=== PATIENT | male | born 1940 | race Caucasian/White ===

== ENCOUNTER 2016-09-15 08:15 | Emergency (ER) | payer MEDICARE, OTHER ==
[~2016-09-15] VITALS: Ht 162.6 cm; Wt 83.9 kg
[~2016-09-15 08:15] MED LIST: ALBU8.5H6 IH; ALPR0.5T PO; AMLO2.5T PO; AMOX1TAB11 PO; ASCO500C PO; ASPI-482 PO; ASPI325T4 PO; BRIN10DR EACHEYE; CALC1CAP9 PO; DULO30CA43 PO; FISH1CAP PO; GLIM1TAB2 PO; Hydrocodone/Acetaminophen PO; LATA2.5D3 OP; LEVO15TA4 PO; LIDO700A4 TD; LOSA100T6 PO; LUBI8CAP3 PO; LYSI100013 PO; LYSI500T11 PO; METF850T2 PO; MULT-18 PO; OMEP40CA5 PO; PRAS25CA PO; PREG50CA PO; PREG75CA PO; PROAIR HFA8.5 GM IH; TAMS0.4C97 PO; UBID50TA PO; VITA1TAB19 PO; VITA2500 PO; VITA400C11 PO; Vitamin D 3; [UNRECOGNIZED DRUG - CODE] IJ; [UNRECOGNIZED DRUG - OTHER]; [UNRECOGNIZED DRUG - OTHER]; [UNRECOGNIZED DRUG - OTHER]
[2016-09-15 09:34] LABS: OBC FLU VALID
[2016-09-15 09:34] LABS: BASO % 1 % (0-3); EOS % 2 % (0-3); HEMATOCRIT 37.5 % (39.0-53.0); HEMOGLOBIN 12.8 g/dL (13.0-17.5); LYMPH % 28 % (24-48); MEAN CORPUSCULAR HEMOGLOBIN 33 pg (25-35); MEAN CORPUSCULAR HGB CONC 34 g/dL (31-37); MEAN CORPUSCULAR VOLUME 95 fL (79-100); MONO % 10 % (0-9); NEUT % 59 % (31-73); PLATELET COUNT 300 x10^3/uL (140-400); RED BLOOD COUNT 3.94 x10^6/uL (4.30-5.70); RED CELL DISTRIBUTION WIDTH 12.5 % (11.5-14.5); WHITE BLOOD COUNT 10.7 x10^3/uL (4.0-11.0)
[2016-09-15 09:35] LABS: CALCIUM 9.2 mg/dL (8.5-10.1); GFR 72.8; POTASSIUM 4.2 mmol/L (3.5-5.1)
--- NOTE | 2016-09-15 09:36 | RAD ---
Indication cough and chest pain. History of diabetes hypertension and COPD. A single view of the chest was obtained and is compared to an examination 10/12/2013. Heart size is slightly enlarged. There is no congestive heart failure focal infiltrate significant pleural fluid collection or pneumothorax. Visualized bony structures appear grossly intact. IMPRESSION: Mild cardiomegaly. No acute finding is apparent in the chest
[2016-09-15 09:40] LABS: ALBUMIN 3.7 g/dL (3.4-5.0); DIRECT BILIRUBIN 0.2 mg/dL (0.0-0.2); TOTAL BILIRUBIN 1.3 mg/dL (0.2-1.0); TOTAL PROTEIN 6.6 g/dL (6.4-8.2)
[2016-09-15 09:47] LABS: CKMB MASS 1.2 ng/mL (0.0-3.6); CREATINE KINASE 19 U/L (39-308)
[2016-09-15 10:41] LABS: BILIRUBIN,URINE NEGATIVE (NEG); GLUCOSE,URINE NEGATIVE (NEG); NITRITE,URINE NEGATIVE (NEG); PH,URINE 6.5; PROTEIN,URINE NEGATIVE (NEG-TRACE); UROBILINOGEN,URINE 0.2 mg/dL (0.2 mg/dL)
[2016-09-15 11:03] LABS: BACTERIA,URINE 0 /HPF (0-FEW); RBC,URINE 0 /HPF (0-2); WBC,URINE 0 /HPF (0-4)
[2016-09-15 11:04] LABS: SQUAMOUS EPITHELIAL CELL,UR OCC /LPF
--- NOTE | 2016-09-15 11:31 | EKG ---
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
--- NOTE | 2016-09-15 11:59 | PHYS DOC ---
Past Medical History Past Medical History: COPD, Diabetes-Type II, GERD, Glaucoma, Hypertension, Other Additional Past Medical Histor: Albinism, Shingles, enlarged prostate Past Surgical History: Appendectomy, Knee Replacement, Tonsillectomy Additional Past Surgical Histo: Right wrist, Eye, vasectomy Alcohol Use: Occasionally Drug Use: None Adult General Chief Complaint Chief Complaint: CHEST PAIN HPI HPI Patient is a 76 year old male brought to the ED by his daughter who works here at [employer]. The patient has had some sinus congestion for about a week and had some chest congestion over that time, becoming increasingly bothersome. He' s had some congested feeling across his anterior chest bilaterally, across his upper back. He's had a cough and felt a little shortness of breath with exertion. His symptoms are not intermittent but have been consistent for several days. In fact right now his most prominent symptom is a sore throat. It kept him up last night despite using throat numbing spray. He also took ibuprofen which helped a little bit. He felt feverish and had a chill. He did not have a flu shot last fall, he doesn't believe in them. He is in good general health with no cardiac history. He does not smoke. No GI symptoms. PCP Dr. Archibald Review of Systems Review of Systems Constitutional: As in history of present illness Eyes: Denies change in visual acuity, redness, or eye pain [] HENT: As in history of present illness Respiratory: As in history of present illness Cardiovascular: Chest discomfort described as in history of present illness does not sound cardiac to me GI: Denies abdominal pain, nausea, vomiting, bloody stools or diarrhea [] : Denies dysuria or hematuria [] Musculoskeletal: Denies back pain or joint pain [] Integument: Denies rash or skin lesions [] Neurologic: Denies headache, focal weakness or sensory changes [] Allergies Allergies Allergies Coded Allergies Type Severity Reaction Last Updated Verified Sulfa (Sulfonamide Antibiotics) Allergy Intermediate 10/21/14 Yes morphine Allergy Intermediate Hallucinations 10/21/14 Yes Physical Exam Physical Exam Constitutional: Well developed, well nourished, no acute distress, non-toxic appearance. Alert, talkative, mentating normally, no dyspnea HENT: Normocephalic, atraumatic, bilateral external ears normal, oropharynx moist, no oral exudates, throat and oropharynx entirely clear without redness or abnormality, nose normal. [] Eyes: conjunctiva normal, no discharge. [] Neck: Normal range of motion, no stridor. [] Cardiovascular:Heart rate regular rhythm, no murmur [] Lungs & Thorax: Bilateral breath sounds clear to auscultation , lungs entirely clear bilaterally Abdomen: Bowel sounds normal, soft, no tenderness, no masses, no pulsatile masses. [] Skin: Warm, dry, no erythema, no rash. [] Extremities: No tenderness, no cyanosis, no clubbing, ROM intact, no edema. [] Neurologic: Alert and oriented X 3, normal motor function, normal sensory function, no focal deficits noted. [] Current Patient Data Vital Signs Vital Signs Date Time Temp Pulse Resp B/P Pulse Ox O2 Delivery O2 Flow Rate FiO2 09/15/16 12:13 61 20 178/85 98 Room Air 09/15/16 08:30 98.6 98.6 Lab Values Laboratory Tests Test 09/15/16 08:59 09/15/16 09:06 09/15/16 10:30 Influenza Type A Antigen Negative (NEGATIVE) Influenza Type B Antigen Negative (NEGATIVE) White Blood Count 10.7x10^3/uL (4.0-11.0) Red Blood Count 3.94x10^6/uL (4.30-5.70) L Hemoglobin 12.8g/dL (13.0-17.5) L Hematocrit 37.5% (39.0-53.0) L Mean Corpuscular Volume 95fL (79-100) Mean Corpuscular Hemoglobin 33pg (25-35) Mean Corpuscular Hemoglobin Concent 34g/dL (31-37) Red Cell Distribution Width 12.5% (11.5-14.5) Platelet Count 300x10^3/uL (140-400) Neutrophils (%) (Auto) 59% (31-73) Lymphocytes (%) (Auto) 28% (24-48) Monocytes (%) (Auto) 10% (0-9) H Eosinophils (%) (Auto) 2% (0-3) Basophils (%) (Auto) 1% (0-3) Neutrophils # (Auto) 6.3x10^3uL (1.8-7.7) Lymphocytes # (Auto) 3.0x10^3/uL (1.0-4.8) Monocytes # (Auto) 1.1x10^3/uL (0.0-1.1) Eosinophils # (Auto) 0.3x10^3/uL (0.0-0.7) Basophils # (Auto) 0.0x10^3/uL (0.0-0.2) Sodium Level 141mmol/L (136-145) Potassium Level 4.2mmol/L (3.5-5.1) Chloride Level 104mmol/L (98-107) Carbon Dioxide Level 28mmol/L (21-32) Anion Gap 9 (6-14) Blood Urea Nitrogen 11mg/dL (8-26) Creatinine 1.0mg/dL (0.7-1.3) Estimated GFR (Cockcroft-Gault) 72.8 Glucose Level 200mg/dL (70-99) H Calcium Level 9.2mg/dL (8.5-10.1) Total Bilirubin 1.3mg/dL (0.2-1.0) H Direct Bilirubin 0.2mg/dL (0.0-0.2) Aspartate Amino Transferase (AST) 13U/L (15-37) L Alanine Aminotransferase (ALT) 22U/L (16-63) Alkaline Phosphatase 55U/L (46-116) Creatine Kinase 19U/L (39-308) L Creatine Kinase MB (Mass) 1.2ng/mL (0.0-3.6) Creatine Kinase MB Relative Index % (0-4) Troponin I Quantitative < 0.017ng/mL (0.000-0.055) IC-Ihc-J-Type Natriuretic Peptide 147pg/mL (0-449) Total Protein 6.6g/dL (6.4-8.2) Albumin 3.7g/dL (3.4-5.0) Urine Collection Type Unknown Urine Color Yellow Urine Clarity Clear Urine pH 6.5 Urine Specific [place] 1.010 Urine Protein Negativemg/dL (NEG-TRACE) Urine Glucose (UA) Negativemg/dL (NEG) Urine Ketones (Stick) Negativemg/dL (NEG) Urine Blood Negative (NEG) Urine Nitrite Negative (NEG) Urine Bilirubin Negative (NEG) Urine Urobilinogen Dipstick 0.2mg/dL (0.2 mg/dL) Urine Leukocyte Esterase Negative (NEG) Urine RBC 0/HPF (0-2) Urine WBC 0/HPF (0-4) Urine Squamous Epithelial Cells Occ/LPF Urine Bacteria 0/HPF (0-FEW) Urine Mucus Slight/LPF Laboratory Tests 09/15/16 09:06 Laboratory Tests 09/15/16 09:06 EKG EKG 12-lead EKG read by me. Sinus rhythm. Heart rate 77. There are no acute ST or T wave changes indicative of ischemia or infarction. No STEMI. 0830[] Radiology/Procedures Radiology/Procedures One view portable chest x-ray read by the radiologist. No acute cardiopulmonary abnormality. [] Course & Med Decision Making Course & Med Decision Making Pertinent Labs and Imaging studies reviewed. (See chart for details) 76-year-old male without cardiac history presents with a week of head and chest congestion and sore throat. Influenza is negative. I believe his symptoms are viral. I discussed symptom relief with him. His symptoms do not sound cardiac, EKG and cardiac enzymes are normal. [] Dragon Disclaimer Dragon Disclaimer This electronic medical record was generated, in whole or in part, using a voice recognition dictation system. Departure Departure Impression: Primary Impression: Pharyngitis Disposition: HOME, SELF-CARE Condition: STABLE Referrals: Guillermina ARCHIBALD MD (PCP) Patient Instructions: Viral Syndrome BOBBY BOYER MD Sep 15, 2016 11:59
[2016-09-15 12:13] VITALS: BP 178/85
== END 2016-09-15 12:15 | disposition home or self-care (01) ==
LOC: ER 08:15
DX: J02.9 Acute pharyngitis, unspecified (principal); J44.9 Chronic obstructive pulmonary disease, unspecified; K21.9 Gastro-esophageal reflux disease without esophagitis; E11.39 Type 2 diabetes mellitus with other diabetic ophthalmic complication; H40.9 Unspecified glaucoma; I10 Essential (primary) hypertension; Z96.659 Presence of unspecified artificial knee joint; Z98.52 Vasectomy status; Z90.49 Acquired absence of other specified parts of digestive tract; Z88.2 Allergy status to sulfonamides; Z88.5 Allergy status to narcotic agent
CPT/HCPCS: 36415; 71010; 80048; 80076; 81001; 82553; 83880; 84484; 85027; 87804; 93005; 99285-25

== ENCOUNTER 2018-11-08 00:44 | Emergency (ER) | payer OTHER ==
[~2018-11-08] VITALS: Ht 165.1 cm; Wt 81.6 kg
[~2018-11-08 00:44] MED LIST changes: +ALBU2.5V8 IH; -AMLO2.5T PO; +AMLO2.5T5 PO; -ASPI325T4 PO; +ASPI325T8 PO; +LOSA100T14 PO; -LOSA100T6 PO; -LUBI8CAP3 PO; +LUBI8CAP4 PO; -LYSI500T11 PO; +LYSI500T24 PO; -METF850T2 PO; +METF850T8 PO; -PROAIR HFA8.5 GM IH
[2018-11-08 00:45] VITALS: BP 162/85
[2018-11-08] MEDS ORDERED: ALBUTEROL SULFATE 2.5 MG/3 ML NEBU. NEB ONE (01:15)
--- NOTE | 2018-11-08 02:00 | PHYS DOC ---
Past Medical History Past Medical History: COPD, Diabetes-Type II, GERD, Glaucoma, Hypertension, Other Additional Past Medical Histor: Albinism, Shingles, enlarged prostate Past Surgical History: Appendectomy, Knee Replacement, Tonsillectomy Additional Past Surgical Histo: Right wrist, Eye, vasectomy Alcohol Use: Occasionally Drug Use: None Adult General Chief Complaint Chief Complaint: Congestion HPI HPI 78-year-old male presents with a chief complaint of sinus pressure congestion cough with sputum production and wheezing. Patient states symptoms have been ongoing for the last several days progressively becoming worse. He is been febrile. He denies any sick contacts. Exam patient has frontal and maxillary sinus tenderness he is wheezy on exam. Patient denies any chest pain Review of Systems Review of Systems Constitutional: Denies fever or chills [] Eyes: Denies change in visual acuity, redness, or eye pain [] HENT: Positive nasal congestion no sore throat [] Respiratory: positive cough or shortness of breath [] Cardiovascular: No additional information not addressed in HPI [] GI: Denies abdominal pain, nausea, vomiting, bloody stools or diarrhea [] : Denies dysuria or hematuria [] Musculoskeletal: Denies back pain or joint pain [] Integument: Denies rash or skin lesions [] Neurologic: Denies headache, focal weakness or sensory changes [] Endocrine: Denies polyuria or polydipsia [] All other systems were reviewed and found to be within normal limits, except as documented in this note. Current Medications Current Medications Current Medications Medications (Trade) Dose Ordered Sig/Obed Start Time Stop Time Status Last Admin Dose Admin Albuterol Sulfate (Ventolin Neb Soln) 2.5 mg 1X ONCE 11/08/18 01:15 11/08/18 01:16 DC 11/08/18 01:23 2.5 MG Allergies Allergies Allergies Coded Allergies Type Severity Reaction Last Updated Verified Sulfa (Sulfonamide Antibiotics) Allergy Intermediate 10/21/14 Yes morphine Allergy Intermediate Hallucinations 10/21/14 Yes Physical Exam Physical Exam Constitutional: Well developed, well nourished, no acute distress, non-toxic appearance. [] HENT: Normocephalic, atraumatic, bilateral external ears normal, oropharynx moist, no oral exudates, nose normal. [Bilateral frontal and maxillary sinus tenderness] Eyes: PERRLA, EOMI, conjunctiva normal, no discharge. [] Neck: Normal range of motion, no tenderness, supple, no stridor. [] Cardiovascular:Heart rate regular rhythm, no murmur [] Lungs & Thorax: Bilateral breath sounds wheezing Abdomen: Bowel sounds normal, soft, no tenderness, no masses, no pulsatile masses. [] Skin: Warm, dry, no erythema, no rash. [] Back: No tenderness, no CVA tenderness. [] Extremities: No tenderness, no cyanosis, no clubbing, ROM intact, no edema. [] Neurologic: Alert and oriented X 3, normal motor function, normal sensory function, no focal deficits noted. [] Psychologic: Affect normal, judgement normal, mood normal. [] Current Patient Data Vital Signs Vital Signs Date Time Temp Pulse Resp B/P (MAP) Pulse Ox O2 Delivery O2 Flow Rate FiO2 11/08/18 01:26 96 Room Air 11/08/18 00:45 99.4 89 20 162/85 (110) 99.4 EKG EKG [] Radiology/Procedures Radiology/Procedures Chest x-ray wet read no focal infiltrates no bony abnormalities heart mediastinum within normal limits[] Course & Med Decision Making Course & Med Decision Making Pertinent Labs and Imaging studies reviewed. (See chart for details) []Agent was evaluated for chief complaint. Workup consisted of radiologic imaging. Treatment included albuterol neb. Patient will be discharged home with Robitussin with codeine and amoxicillin Dragon Disclaimer Dragon Disclaimer This electronic medical record was generated, in whole or in part, using a voice recognition dictation system. Departure Departure Referrals: Guillermina ARCHIBALD MD (PCP) CHETAN SCHMIDT DO Nov 08, 2018 01:59
[2018-11-08] MEDS ORDERED: AMOX875T PO (02:03)
[2018-11-08] MEDS ORDERED: GUAI120L35 PO (02:03)
[2018-11-08] MEDS ORDERED: ACETAMINOPHEN 325 MG TABLET. PO ONE (02:30)
[2018-11-08] MEDS ORDERED: AMOXICILLIN 250 MG CAPSULE. PO ONE (03:00)
--- NOTE | 2018-11-08 03:18 | RAD ---
PROCEDURE: CHEST AP ONLY CLINICAL INDICATION: shortness of breath, cough COMPARISON: None FINDINGS: No pneumothorax identified. Cardiac and mediastinal contours unremarkable. No pulmonary consolidation or acute airspace disease. No acute osseous abnormalities identified. IMPRESSION: No pulmonary consolidation or acute airspace disease. Electronically signed by: Patric Brandt DO (11/08/2018 3:15 AM) [facility]
== END 2018-11-08 03:03 | disposition home or self-care (01) ==
LOC: ER 00:44
DX: R05 Cough (principal); R09.81 Nasal congestion; R06.2 Wheezing; J44.9 Chronic obstructive pulmonary disease, unspecified; K21.9 Gastro-esophageal reflux disease without esophagitis; I10 Essential (primary) hypertension; E11.39 Type 2 diabetes mellitus with other diabetic ophthalmic complication; Z88.2 Allergy status to sulfonamides; Z88.5 Allergy status to narcotic agent
CPT/HCPCS: 71045; 94640; 99283; J7613

== ENCOUNTER → 2019-03-20 | Outpatient (CLI) | payer OTHER ==
[~2019-03-20] MED LIST changes: +AMOX875T PO; +GUAI120L35 PO
--- NOTE | 2019-03-20 14:08 | KCIC ---
BRAIN W/O CONTRAST Date: 03/20/2019 12:30 PM Indication: Dizziness, falls Comparison: MRI 04/29/2015. Technique: Multiplanar multisequence MRI of the brain was performed without intravenous contrast using the standard protocol. Findings: No acute infarct. No acute hemorrhage. The ventricles are normal in size and configuration without hydrocephalus. Unchanged anterior middle cranial fossa extra-axial CSF spaces, possibly arachnoid cysts. Extensive confluent FLAIR hyperintense signal in the subcortical and periventricular deep white matter as well as the enriqueta, a nonspecific finding, most commonly seen with chronic small vessel ischemic disease. Moderate generalized cerebral and cerebellar volume loss. The scalp and calvarium are normal. The pituitary and sella are normal. No Chiari malformation. Mild incompletely characterized degenerative spondylosis of the visualized upper cervical spine. The visualized orbits and globes are normal. The visualized paranasal sinuses are clear. The mastoid air cells are clear. Normal flow voids within the vertebral, basilar, and internal carotid arteries indicating patency. IMPRESSION: 1. No acute infarct, hemorrhage, mass, or hydrocephalus. 2. Extensive chronic small vessel ischemic disease and moderate generalized cerebral volume loss. Electronically signed by: Ben Bennett MD (03/20/2019 2:06 PM) [id number]
--- NOTE | 2019-03-20 15:11 | KCIC ---
Carotid artery Doppler History: , , , Technique: Realtime grayscale B-mode 2D sonographic images of the subclavian, vertebral and carotid arteries were performed with color flow, and spectral waveform analysis Doppler imaging. Comparison: April 29, 2015 Stenosis calculations are derived from the elevated velocity criteria which are known to correlate with NASCET methodology. Findings: Mild Scattered focal soft and calcific plaque is seen in the carotid arteries. Right vertebral: antegrade Left vertebral: antegrade Right subclavian: Not evaluated Left subclavian: None evaluated Right Left Common Carotid Artery PSV 120 cm/second 96 cm/second Internal Carotid Artery PSV 66 cm/second 54 cm/second Internal Carotid Artery EDV 17 cm/second 15 cm/second External Carotid Artery PSV 101 cm/second 78 cm/second ICA/CCA ratio 0.6 0.6 Impression: bilateral carotid artery plaque formation with no evidence of hemodynamically significant stenosis Electronically signed by: Paco Goodrich MD (03/20/2019 3:07 PM) [facility] [place]
== END | disposition home or self-care (01) ==
LOC: KCIC US 10:24
PROVIDERS: ATTEND Family Medicine
DX: I65.23 Occlusion and stenosis of bilateral carotid arteries (principal); G93.89 Other specified disorders of brain; M47.812 Spondylosis without myelopathy or radiculopathy, cervical region; G44.89 Other headache syndrome; Z68.28 Body mass index [BMI] 28.0-28.9, adult
CPT/HCPCS: 70551; 93880

== ENCOUNTER 2019-04-15 20:37 | Emergency (ER) | payer OTHER ==
[~2019-04-15] VITALS: Ht 165.1 cm; Wt 81.6 kg
[~2019-04-15 20:37] MED LIST changes: -DULO30CA43 PO; +DULO30CA44 PO
[2019-04-15 21:00] VITALS: BP 199/93
[2019-04-15] MEDS ORDERED: FLUORESCEIN OPHTH TEST STRIP. OS ONE (21:30)
[2019-04-15] MEDS ORDERED: TETRACAINE 0.5% OPHTH SOLUTION 4ML BOTTLE. OS ONE (21:30)
[2019-04-15] MEDS ORDERED: ERYT1OIN6 LEFTEYE (21:43)
[2019-04-15] MEDS ORDERED: HYDR-2761 PO (21:43)
--- NOTE | 2019-04-15 21:44 | PHYS DOC ---
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 Pt states he flushed his eye out with water and noticed that his eye began to hurt. 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 Pt currently rates his pain an 8/10 on the pain scale he denies any alleviating factors. Review of Systems Review of Systems Constitutional: Denies fever or chills [] Eyes: Denies change in visual acuity; see HPI HENT: Denies nasal congestion or sore throat [] Respiratory: Denies cough or shortness of breath [] Integument: Denies rash or skin lesions [] Neurologic: Denies headache Complete systems were reviewed and found to be within normal limits, except as documented in this note. Current Medications Current Medications Current Medications Medications (Trade) Dose Ordered Sig/Obed Start Time Stop Time Status Last Admin Dose Admin Fluorescein Sodium (Ful-Justine) 1 strip 1X ONCE 04/15/19 21:30 04/15/19 21:31 DC 04/15/19 21:26 1 STRIP Tetracaine HCl (Tetracaine) 1 drop 1X ONCE 04/15/19 21:30 04/15/19 21:31 DC 04/15/19 21:26 1 DROP Allergies Allergies Allergies Coded Allergies Type Severity Reaction Last Updated Verified Sulfa (Sulfonamide Antibiotics) Allergy Intermediate 10/21/14 Yes morphine Allergy Intermediate Hallucinations 10/21/14 Yes Physical Exam Physical Exam Constitutional: Well developed, well nourished, no acute distress, non-toxic appearance. [] HENT: Normocephalic, atraumatic, bilateral external ears normal, oropharynx moist, no oral exudates, nose normal. [] Eyes: PERRLA, EOMI, conjunctiva normal, no discharge; see fluorescein eye exam under procedures . [] Neck: Normal range of motion, no stridor. [] Lungs & Thorax: Respirations even and unlabored, no retractions, no respiratory distress Skin: Warm, dry, no erythema, no rash. [] [] Extremities: No cyanosis, ROM intact Neurologic: Alert and oriented X 3, normal motor function, normal sensory function, no focal deficits noted. [] Psychologic: Affect normal, judgement normal, mood normal. [] Current Patient Data Vital Signs Vital Signs Date Time Temp Pulse Resp B/P (MAP) Pulse Ox O2 Delivery O2 Flow Rate FiO2 04/15/19 21:00 98.8 81 14 199/93 (128) 98 Room Air 98.8 EKG EKG [] Radiology/Procedures Radiology/Procedures Using tetracaine and fluroscein the patient's eye was examined under Wood's lamp and an area of uptake between 11 o'clock and 1 o'clock was noted. Patient's ocular symptoms have stabilized while they have been evaluated in the department and are appropriate for outpatient work up. No evidence of ruptured globe, retinal detachment, acute angle closure glaucoma, or deep space infection. Plan for 24 hour ophthalmologic follow up. Course & Med Decision Making Course & Med Decision Making Pertinent Labs and Imaging studies reviewed. (See chart for details) [] Dragon Disclaimer Dragon Disclaimer This electronic medical record was generated, in whole or in part, using a voice recognition dictation system. Departure Departure Impression: Primary Impression: Corneal abscess of left eye Disposition: 01 HOME, SELF-CARE Condition: STABLE Referrals: Guillermina ARCHIBALD MD (PCP) Patient Instructions: Eye - Corneal Abrasion, [id number] Additional Instructions: Fill the prescriptions and use as directed. Call your eye doctor tomorrow morning for re-evaluation. Return to the ER if your symptoms worsen. Scripts Hydrocodone Bit/Acetaminophen (HYDROCODONE-APAP 5-325 ) 1 Tab Tablet 1 TAB PO PRN Q6HRS PRN for PAIN for 3 Days, #12 TAB 0 Refills Prov: MAGI REYNOLDS V BELT COVERER 04/15/19 Erythromycin Base (Erythromycin) 1 Gm Oint...g. 0.5 INCH LEFTEYE QID for 5 Days, #1 TUBE 0 Refills Prov: MAGI REYNOLDS V BELT COVERER 04/15/19 MAGI REYNOLDS V BELT COVERER Apr 15, 2019 21:44
[2019-04-15] MEDS ORDERED: ERYTHROMYCIN 0.5% OPHTH OINTMENT 1GM TUBE. OS ONE (22:00)
[2019-04-15] MEDS ORDERED: HYDROcodone/APAP 5/325MG 1 TAB TABLET PO ONE (22:00)
== END 2019-04-15 21:53 | disposition home or self-care (01) ==
LOC: ER 20:37
DX: H16.312 Corneal abscess, left eye (principal); J44.9 Chronic obstructive pulmonary disease, unspecified; E11.9 Type 2 diabetes mellitus without complications; K21.9 Gastro-esophageal reflux disease without esophagitis; I10 Essential (primary) hypertension; E11.39 Type 2 diabetes mellitus with other diabetic ophthalmic complication; H42 Glaucoma in diseases classified elsewhere; Z98.52 Vasectomy status; Z90.89 Acquired absence of other organs; Z96.659 Presence of unspecified artificial knee joint; Z88.2 Allergy status to sulfonamides; Z88.5 Allergy status to narcotic agent
CPT/HCPCS: 99281; 99284

== ENCOUNTER 2020-10-06 13:40 | Emergency (ER) | payer MEDICARE, OTHER ==
[~2020-10-06] VITALS: Ht 165.1 cm; Wt 68.0 kg
[~2020-10-06 13:40] MED LIST changes: +ERYT1OIN6 LEFTEYE; -GLIM1TAB2 PO; +GLIM1TAB7 PO; +HYDR-2761 PO; +OMEP40CA45 PO; -OMEP40CA5 PO; +PREG-9 PO; -PREG50CA PO; +PREG50CA91 PO; -PREG75CA PO
[2020-10-06] MEDS ORDERED: ACETAMINOPHEN 500 MG TABLET PO ONE (14:00)
--- NOTE | 2020-10-06 14:31 | RAD ---
EXAM: CHEST 1 VIEW History: Cough, fever COMPARISON: 11/08/2018 TECHNIQUE: Single portable radiograph of the chest FINDINGS: The cardiac silhouette is unremarkable. The lungs are clear bilaterally. The costophrenic sulci are clear and well demarcated. IMPRESSION: No radiographic evidence of an acute cardiopulmonary process. Electronically signed by: Yonas Henry MD (10/06/2020 2:28 PM) [id number]
[2020-10-06 14:35] LABS: BASO % 0 % (0-3); EOS % 1 % (0-3); HEMATOCRIT 38.1 % (39.0-53.0); HEMOGLOBIN 12.6 g/dL (13.0-17.5); LYMPH # 1.2 x10^3/uL (1.0-4.8); LYMPH % 24 % (24-48); MEAN CORPUSCULAR HEMOGLOBIN 32 pg (25-35); MEAN CORPUSCULAR HGB CONC 33 g/dL (31-37); MEAN CORPUSCULAR VOLUME 95 fL (79-100); MONO # 0.6 x10^3/uL (0.0-1.1); MONO % 12 % (0-9); NEUT # 3.3 x10^3/uL (1.8-7.7); NEUT % 64 % (31-73); PLATELET COUNT 225 x10^3/uL (140-400); RED CELL DISTRIBUTION WIDTH 12.9 % (11.5-14.5); WHITE BLOOD COUNT 5.2 x10^3/uL (4.0-11.0)
--- NOTE | 2020-10-06 14:45 | PHYS DOC ---
Past Medical History Past Medical History: COPD, Diabetes-Type II, GERD, Glaucoma, Hypertension, Other Additional Past Medical Histor: Albinoism, Shingles, enlarged prostate Past Surgical History: Appendectomy, Knee Replacement, Tonsillectomy Additional Past Surgical Histo: Right wrist, Eye, vasectomy Smoking Status: Never Smoker Alcohol Use: None Drug Use: None General Adult EDM: Chief Complaint: SHORTNESS OF BREATH HPI: HPI: Patient is a 80 year old male who was brought here by EMS from home due to cough and fever. Patient has this symptom for 4 days, patient was tested for Covid 19 on Tuesday. Patient's has the same problem, states she was tested positive for Covid on Tuesday but his test came back negative. Patient denies any chest pain, no abdominal pain, no nausea vomiting. Review of Systems: Review of Systems: Constitutional: Positive for fever or chills. [] Eyes: Denies change in visual acuity. [] HENT: Denies nasal congestion or sore throat. [] Respiratory: POSITIVE FOR cough or shortness of breath. [] Cardiovascular: Denies chest pain or edema. [] GI: Denies abdominal pain, nausea, vomiting, bloody stools or diarrhea. [] : Denies dysuria. [] Musculoskeletal: Denies back pain or joint pain. [] Integument: Denies rash. [] Neurologic: Denies headache, focal weakness or sensory changes. [] Endocrine: Denies polyuria or polydipsia. [] Lymphatic: Denies swollen glands. [] Psychiatric: Denies depression or anxiety. [] Heart Score: Risk Factors: Risk Factors: DM, Current or recent (<one month) smoker, HTN, HLP, family history of CAD, obesity. Risk Scores: Score 0 - 3: 2.5% MACE over next 6 weeks - Discharge Home Score 4 - 6: 20.3% MACE over next 6 weeks - Admit for Clinical Observation Score 7 - 10: 72.7% MACE over next 6 weeks - Early Invasive Strategies Current Medications: Current Medications Medications (Trade) Dose Ordered Sig/Obed Start Time Stop Time Status Last Admin Dose Admin Acetaminophen (Tylenol) 1,000 mg 1X ONCE 10/06/20 14:00 10/06/20 14:01 DC 10/06/20 14:20 1,000 MG Allergies: Allergies: Allergies Coded Allergies Type Severity Reaction Last Updated Verified Sulfa (Sulfonamide Antibiotics) Allergy Intermediate 10/21/14 Yes morphine Allergy Intermediate Hallucinations 10/21/14 Yes Physical Exam: PE: Constitutional: Well developed, well nourished, no acute distress, non-toxic appearance. [] HENT: Normocephalic, atraumatic, bilateral external ears normal, oropharynx moist, no oral exudates, nose normal. [] Eyes: PERRLA, EOMI, conjunctiva normal, no discharge. [] Neck: Normal range of motion, no tenderness, supple, no stridor. [] Cardiovascular:Heart rate regular rhythm, no murmur [] Lungs & Thorax: Bilateral breath sounds clear to auscultation [] Abdomen: Bowel sounds normal, soft, no tenderness, no masses, no pulsatile masses. [] Skin: Warm, dry, no erythema, no rash. [] Back: No tenderness, no CVA tenderness. [] Extremities: No tenderness, no cyanosis, no clubbing, ROM intact, no edema. [] Neurologic: Alert and oriented X 3, normal motor function, normal sensory function, no focal deficits noted. [] Psychologic: Affect normal, judgement normal, mood normal. [] Current Patient Data: Labs: Laboratory Tests Test 10/06/20 14:18 White Blood Count 5.2 x10^3/uL (4.0-11.0) Red Blood Count 4.00 x10^6/uL (4.30-5.70) L Hemoglobin 12.6 g/dL (13.0-17.5) L Hematocrit 38.1 % (39.0-53.0) L Mean Corpuscular Volume 95 fL (79-100) Mean Corpuscular Hemoglobin 32 pg (25-35) Mean Corpuscular Hemoglobin Concent 33 g/dL (31-37) Red Cell Distribution Width 12.9 % (11.5-14.5) Platelet Count 225 x10^3/uL (140-400) Neutrophils (%) (Auto) 64 % (31-73) Lymphocytes (%) (Auto) 24 % (24-48) Monocytes (%) (Auto) 12 % (0-9) H Eosinophils (%) (Auto) 1 % (0-3) Basophils (%) (Auto) 0 % (0-3) Neutrophils # (Auto) 3.3 x10^3/uL (1.8-7.7) Lymphocytes # (Auto) 1.2 x10^3/uL (1.0-4.8) Monocytes # (Auto) 0.6 x10^3/uL (0.0-1.1) Eosinophils # (Auto) 0.0 x10^3/uL (0.0-0.7) Basophils # (Auto) 0.0 x10^3/uL (0.0-0.2) Laboratory Tests 10/06/20 14:18 Vital Signs: Vital Signs Date Time Temp Pulse Resp B/P (MAP) Pulse Ox O2 Delivery O2 Flow Rate FiO2 10/06/20 13:50 98.3 79 16 128/62 (84) 98 Room Air 98.3 EKG: EKG: [] Radiology/Procedures: Radiology/Procedures: [][facility] [address] [place] [address] IMAGING REPORT Signed PATIENT: NATHALIE DUFFY ACCOUNT: [id number] : 1940 LOCATION: ER AGE: 80 SEX: M EXAM STATUS: REG ER ORD. PHYSICIAN: KRISTINE PAEZ DO REASON: COUGH, FEVER PROCEDURE: PORTABLE CHEST 1V EXAM: CHEST 1 VIEW History: Cough, fever COMPARISON: 11/08/2018 TECHNIQUE: Single portable radiograph of the chest FINDINGS: The cardiac silhouette is unremarkable. The lungs are clear bilaterally. The costophrenic sulci are clear and well demarcated. IMPRESSION: No radiographic evidence of an acute cardiopulmonary process. Electronically signed by: Yonas Henry MD (10/06/2020 2:28 PM) [id number] DICTATED and SIGNED BY: YONAS HENRY MD DATE: 10/06/20 [id number] 0 Course & Med Decision Making: Course & Med Decision Making Pertinent Labs and Imaging studies reviewed. (See chart for details) Patient is a 80-year-old male who was brought here by EMS from home due to cough and fever. Patient's was tested positive for COVID-19 3 days ago, patient was tested negative for Covid 19 but he has all the signs symptom of COVID-19 infection. His chest x-ray did not show any acute problem, his oxygen saturation was 98% on room air, patient does not need to be admitted to the hospital. Discussed with the ocular care technician on-call Dr. Figueroa who recommended patient can be discharged home with prednisone taper. [place] Disclaimer: Dragon Disclaimer: This electronic medical record was generated, in whole or in part, using a voice recognition dictation system. Departure Departure Impression: Primary Impression: COVID-19 virus infection Disposition: 01 DC HOME SELF CARE/HOMELESS Condition: STABLE Referrals: Guillermina ARCHIBALD MD (PCP) FOLLOW UP WITH YOUR DOCTOR NEEDED Patient Instructions: Viral Syndrome Additional Instructions: You have been tested for or diagnosed with COVID-19. It is an infection caused by a new type of coronavirus. COVID-19 will cause cold-like or mild flu symptoms in most. It can cause more severe symptoms like problems breathing in some. There is no treatment for COVID-19. The body will clear the infection over time. Self-care will help to ease discomfort. Steps to Take: Self-Care Rest as needed. Healthy habits may help you feel better. Steps include: Choose healthy foods including fruits and vegetables. Drink water throughout the day. Get plenty of sleep each night. If you smoke, try to quit. It may ease breathing. Avoid alcohol. Keep Others Healthy The virus can spread to others. Droplets are released every time you sneeze or cough. The droplets can get into the mouth, nose, or eyes of people near you and lead to infection. To lower the chances of spreading COVID-19 to others: Stay at home until your doctor has said it is safe to leave. If you tested positive this will mean staying isolated until both of the following are true: At least 7 days have passed since the start of illness. You are free of fever for at least 72 hours without the use of medicine. During this time: - Avoid public areas, events, or transportation. Do not return to work or school until your doctor has said it is safe to do so. - Call ahead if you need to go to a medical center. Let them know you may have COVID-19. It will help them guide you where to go. They may also ask you to wear a facemask when you come to the office. - If you call for emergency medical services, let them know you may have COVID- 19. While at home: - Try to avoid close contact with others. Stay about 6 feet away. - If possible, spend most of your time in a separate room from others. - Use a face mask if you will be in close contact with others such as sharing a room or vehicle. - Have someone wipe down common surfaces in the home. Use household burlap bag sewer every day on areas like doorknobs, counters, or sinks. - Cough or sneeze into a tissue. Throw the tissue away right after use. If a tissue is not available, cough or sneeze into your elbow. - Wash your hands often. Wash them after sneezing or coughing. Use soap and water and wash for at least 20 seconds. Alcohol based hand flask cleaner can be used if soap and water is not available. - Do not prepare food for others. Avoid sharing personal items like forks, spoons, or toothbrushes. - Avoid close contact with pets while you are sick. There is no evidence of the virus passing to pets. This is a safety step until more is known about this virus. Isolation can be frustrating. Social interaction can help. Keep in touch with friends and family through phone and tech options. You can still interact with others in your home, just keep a safe distance of about 6 feet. Follow-up: Your doctors office will check in with you to see if there are any changes in your health. You may be asked to keep track of symptoms to share with them. They will also let you know when you are clear to be in public again. Problems to Look Out For: Contact your doctor if your recovery is not going as you expect. Get emergency care if you have problems such as: - Trouble breathing - Nonstop chest pain or pressure - Changes in awareness, confusion, or problems waking - Lips or face have bluish color - Worsening of symptoms If you think you have an emergency, call for emergency medical services right away. As taken from [employer], [employer] [facility] Methylprednisolone (MEDROL) 4 Mg Tab.ds.pk 1 PKG PO UD, #1 PKG Prov: KRISTINE PAEZ DO 10/06/20 KRISTINE PAEZ DO Oct 06, 2020 14:45
[2020-10-06 14:49] LABS: CALCIUM 9.1 mg/dL (8.5-10.1); CREATININE 1.3 mg/dL (0.7-1.3); GFR 53.3
[2020-10-06 14:55] LABS: ALBUMIN 3.6 g/dL (3.4-5.0); ALBUMIN/GLOBULIN RATIO 1.2 (1.0-1.7); MAGNESIUM 1.7 mg/dL (1.8-2.4); TOTAL BILIRUBIN 0.8 mg/dL (0.2-1.0); TOTAL PROTEIN 6.6 g/dL (6.4-8.2)
[2020-10-06] MEDS ORDERED: MAGNESIUM SULFATE 1GM 100 ML IV ONE (15:30)
[2020-10-06 15:34] LABS: INFLUENZA A PATIENT NEGATIVE (NEGATIVE); INFLUENZA B PATIENT NEGATIVE (NEGATIVE)
[2020-10-06] MEDS ORDERED: IV NORMAL SALINE 1000ML BAG 1,000 ML IV ONE (15:45)
[2020-10-06 16:17] LABS: BILIRUBIN,URINE NEGATIVE (NEG); CLARITY,URINE CLEAR; COLOR,URINE YELLOW; NITRITE,URINE NEGATIVE (NEG); PH,URINE 5.5 (<5.0-8.0); PROTEIN,URINE 30 mg/dL (NEG-TRACE); UROBILINOGEN,URINE 0.2 mg/dL (0.2 mg/dL)
[2020-10-06 16:28] LABS: BACTERIA,URINE 0 /HPF (0-FEW); RBC,URINE OCC /HPF (0-2); WBC,URINE OCC /HPF (0-4)
[2020-10-06] MEDS ORDERED: METH4TAB2 PO (16:33)
[2020-10-06 16:44] VITALS: BP 146/64
--- NOTE | 2020-10-07 04:49 | EKG ---
[address] [place] [address] Test Date: 2020-10-06 Test Time: 14:07:20 Pat Name: NATHALIE DUFFY Department: Room: Gender: M Review Analyst: : 1940 Requested By: KRISTINE PAEZ Order Number: [id number] Reading MD: Evaristo Alberto Measurements Intervals [place] Rate: 74 P: 60 MI: 168 QRS: -7 QRSD: 92 T: 34 QT: 358 QTc: 398 Interpretive Statements SINUS RHYTHM LEFTWARD AXIS Electronically Signed On 10-07-2020 9:08:08 PRECISION HONING MACHINE OPERATOR by Evaristo Alberto
--- NOTE | 2020-10-08 15:52 | NUR ---
IP: Informed pt of positive COVID test and the need to quarantine for 14 days. Pt verbalized understanding.
== END 2020-10-06 17:08 | disposition home or self-care (01) ==
LOC: ER 13:40
DX: U07.1 COVID-19 (principal); R50.9 Fever, unspecified; R05 Cough; J44.9 Chronic obstructive pulmonary disease, unspecified; E11.9 Type 2 diabetes mellitus without complications; K21.9 Gastro-esophageal reflux disease without esophagitis; I10 Essential (primary) hypertension; Z90.89 Acquired absence of other organs; Z98.890 Other specified postprocedural states
CPT/HCPCS: 36415; 71045; 80053; 81001; 83605; 83735; 83880; 84484; 85025; 87040; 87205; 87804; 93005; 96365; 99285; C9803; J3475; J7030; U0003

== ENCOUNTER → 2021-02-12 | Outpatient (CLI) | payer MEDICARE ==
[2020-10-17 15:06] VITALS: BP 139/65
[~2021-02-12] MED LIST changes: +ACET500T68 PO; +ALPR0.5T6 PO; +BRIM5DRO4 OU; +CITA10TA8 PO; +DEXA4TAB63 PO; +DOCU-153 PO; +DORZ10DR26 OU; +DOXY100T PO; +GLIM2TAB7 PO; +INSU100V8 SQ; -LATA2.5D3 OP; +LATA2.5D3 OU; +LOSA-73 PO; +METH4TAB2 PO; +METO-239 PO; +MIRT-7 PO; -OMEP40CA45 PO; +OMEP40CA7 PO; +POLY17PO52 PO; +PSYL3.4P PO; +ZINC220C2 PO
--- NOTE | 2021-02-12 13:45 | RAD ---
EXAMINATION: US BILATERAL LOWEREXTREMITY VENOUS DOPPLER (LOWER EXTREMITY VENOUS ULTRASOUND) CLINICAL HISTORY: Bilateral lower extremity edema TECHNIQUE: Sonographic grayscale images obtained of the bilateral lower extremity deep venous systems with color flow Doppler, compression, and augmentation techniques as indicated. Images obtained and stored in a permanent archive. COMPARISON: None FINDINGS: RIGHT: No evidence of absent flow or incompressibility within the common femoral vein, femoral vein, or popl iteal vein. Visualized calf veins appear patent on limited evaluation. LEFT: No evidence of absent flow or incompressibility within the common femoral vein, femoral vein, or popl iteal vein. Visualized calf veins appear patent on limited evaluation. Incidentally noted 5.2 x 1.3 x 1.1 cm hypoechoic collection in the left popliteal fossa, nonspecific but may represent a Tipton's cyst. IMPRESSION: No evidence of bilateral lower extremity DVT. Nonspecific collection in the left popliteal fossa as described, possibly a Tipton's cyst. Electronically signed by: Danny Guillermo DO (02/12/2021 1:43 PM) [id number]
== END ==
LOC: US 12:07
PROVIDERS: ATTEND Family Medicine
DX: R60.0 Localized edema (principal)
CPT/HCPCS: 93970